=== PATIENT | male | born 1970 | race Two or more races ===

== ENCOUNTER 2025-05-15 06:30 | Emergency (ER) | payer BC ==
[~2025-05-15] VITALS: Ht 175.3 cm; Wt 115.7 kg
[2025-05-15 06:58] VITALS: BP 117/76; O2SAT 96
[2025-05-15] MEDS ORDERED: CLONAZEPAM0.5 MG (06:58)
[2025-05-15] MEDS ORDERED: TRAZODONE HCL50 MG (06:58)
[2025-05-15] MEDS ORDERED: LEXAPRO5 MG (06:58)
[2025-05-15 10:11] LABS: INR 1.03
[2025-05-15 10:17] LABS: ALT/SGPT 19.0 U/L (12-78); AST/SGOT 11.0 U/L (15-37); BILIRUBIN TOTAL 0.41 mg/dL (0.3-1.2); BUN CREA RATIO 14.0 (7.0-25.0); CREATININE SERUM 1.12 mg/dL (0.70-1.30); D DIMER 3.93 MG/L; GFR 67.58; GLOBULINA 3.3 G/DL (2.4-3.5); GLUCOSE FASTING 102.0 mg/dL (65-100); OSMOLALITY SERUM 290.0 MOSM/KG (275-295)
[2025-05-15 11:32] LABS: BASO % 1.0 % (0.1-1.2); EOS # 0.08 (0.04-0.54); EOS % 1.2 % (0.7-7.0); LYMPH # 2.06 (1.18-3.74); LYMPH % 30.4 % (19.3-53.1); MEAN PLATELET VOLUME 11.20 fl (9.4-12.4); MONO # 0.40 (0.24-0.82); MONO % 5.9 % (4.7-12.5); NEUT # 4.16 (1.56-6.13); NEUT % 61.4 % (34.0-71.1); RED CELL DISTRIBUTION WIDTH 13.4 % (11.6-14.4)
[2025-05-15 11:56] LABS: ERYTHROCYTE SEDIMENTATION RATE 4 mm/hr (0-20)
[2025-05-15] MEDS ORDERED: APIXABAN 5 MG TABLET PO SCH ×2 (12:45→21:00)
[2025-05-15] MEDS ORDERED: APIXABAN 5 MG TABLET PO NR (12:50)
[2025-05-15] MEDS ORDERED: CEFTRIAXONE SODIUM 1,000 MG VIAL IV ONE (14:30)
[2025-05-15] MEDS ORDERED: CEFUROXIME500 MG PO (15:12)
[2025-05-15] MEDS ORDERED: MEDROLPACK PO (15:12)
== END 2025-05-15 16:06 | disposition home or self-care (01) ==
LOC: ER 06:30 → EDBD 07:47 → ER 07:47
PROVIDERS: General Practice
DX: L03.115 Cellulitis of right lower limb (principal)